=== PATIENT | male | born 2000 | race Asian ===

== ENCOUNTER 2023-12-18 02:50 | Inpatient (IN) | payer MEDICAID, OTHER ==
[~2023-12-18] VITALS: Ht 167.6 cm; Wt 61.9 kg
[2023-12-18 05:54] LABS: BASOPHILS % (AUTO) 0.6 % (0.0-2.0); EOSINOPHILS % (AUTO) 0.5 % (1.0-6.0); HEMATOCRIT 43.1 % (41-53); HEMOGLOBIN 14.8 g/dL (13.5-17.5); LYMPHOCYTES # (AUTO) 2.3 K/uL (1.0-4.8); MEAN CORPUSCULAR HEMOGLOBIN 31.5 pg (26.0-34.0); MEAN CORPUSCULAR HGB CONC 34.3 G/dL (31.0-37.0); MEAN CORPUSCULAR VOLUME 92 fL (80-100); MONOCYTES # (AUTO) 0.7 K/uL (0.1-1.0); MONOCYTES % (AUTO) 7.6 % (2.0-9.0); NEUTROPHILS # (AUTO) 6.1 K/uL (1.8-7.7); NEUTROPHILS % (AUTO) 66.3 % (40.0-70.0); PLATELET COUNT (AUTO) 332 K/uL (150-450); RED BLOOD CELL COUNT(AUTO) 4.69 MIL/uL (4.50-5.90); RED CELL DISTRIBUTION WIDTH 12.6 % (11.5-14.5); WHITE BLOOD COUNT (AUTO) 9.3 K/uL (4.5-11.0)
[2023-12-18 06:04] LABS: ANION GAP 9 mmol/L (8-16); CALCIUM, TOTAL 8.8 mg/dL (8.8-10.5); CARBON DIOXIDE 31 mmol/L (22-29); CHLORIDE 99 mmol/L (98-107); CREATININE 0.93 mg/dL (0.60-1.30); GLOMERULAR FILTR. RATE CALC > 60 mL/min (>60); GLUCOSE,RANDOM 106 mg/dL (70-110); POTASSIUM 3.4 mmol/L (3.5-5.1); SODIUM SERUM 139 mmol/L (136-145); UREA NITROGEN, BLOOD 11 mg/dL (7-18)
[2023-12-18 06:18] LABS: ALCOHOL, BLOOD (SERUM) < 3 mg/dL (0-10)
[2023-12-18] MEDS: POTASSIUM CHLORIDE 20 MEQ ER TABLET PO ONE (06:29)
[2023-12-18 11:42] LABS: ALCOHOL, URINE DRUG SCREEN NEGATIVE (NEGATIVE); AMPHET/METH SCREEN,URINE NEGATIVE (NEGATIVE); BARBITURATE SCREEN, URINE NEGATIVE (NEGATIVE); BENZODIAZEPINES SCREEN,URINE NEGATIVE (NEGATIVE); CANNABINOID SCREEN,URINE NEGATIVE (NEGATIVE); COCAINE SCREEN,URINE POSITIVE (NEGATIVE); METHADONE SCREEN, URINE NEGATIVE (NEGATIVE); OPIATE SCREEN,URINE NEGATIVE (NEGATIVE); PHENCYCLIDINE SCREEN,URINE NEGATIVE (NEGATIVE)
[2023-12-18] MEDS ORDERED: HALOPERIDOL 5 MG TABLET PO PRN (17:15)
[2023-12-18] MEDS ORDERED: LORazepam 2 MG TABLET PO PRN (17:15)
[2023-12-18 17:18] LABS: COVID AG,FIA SOURCE NASAL SWAB
[2023-12-18 17:36] VITALS: BP 125/72; PULSE 68; RESP 19; TEMP 98.5; O2SAT 99
[2023-12-18 17:40] VITALS: BP 125/75; PULSE 68; RESP 18; TEMP 98.5
[2023-12-18 17:56] LABS: SARS-COV2 (COVID) ANTIGEN,FIA Negative (Negative)
[2023-12-18] MEDS ORDERED: MAG HYDROX/ALUMINUM HYD/SIMETH ES 30 ML SUSPENSION UDCUP PO PRN (20:15)
[2023-12-18] MEDS ORDERED: DOCUSATE SODIUM 100 MG CAPSULE PO PRN (20:15)
[2023-12-18] MEDS ORDERED: LOPERAMIDE HCL 2 MG CAPSULE PO PRN (20:15)
[2023-12-18] MEDS ORDERED: ONDANSETRON HCL 4 MG TABLET PO PRN (20:15)
[2023-12-18] MEDS ORDERED: OMEPRAZOLE 20 MG CAPSULE PO PRN (20:15)
[2023-12-18] MEDS ORDERED: BENZOCAINE/MENTHOL LOZENGE PO PRN (20:15)
[2023-12-18] MEDS ORDERED: PETROLATUM,WHITE 28 GM JELLY TP PRN (20:15)
[2023-12-18] MEDS ORDERED: CloNIDine HCL 0.1 MG TABLET PO PRN (20:15)
[2023-12-18] MEDS ORDERED: ALBUTEROL SULFATE HFA 90 MCG/PUFF 8 GM INHALER IH PRN (20:15)
[2023-12-18] MEDS ORDERED: IBUPROFEN 600 MG TABLET PO PRN (20:15)
[2023-12-18] MEDS ORDERED: MAGNESIUM HYDROXIDE SUSPENSION 30 ML UDCUP PO PRN (20:15)
[2023-12-18] MEDS ORDERED: ACETAMINOPHEN 325 MG TABLET PO PRN (20:15)
[2023-12-18] MEDS ORDERED: BACITRACIN 28 GM OINTMENT TP PRN (20:15)
[2023-12-18 22:14] VITALS: BP 117/78; PULSE 89; RESP 16; TEMP 97.9; O2SAT 98
[2023-12-18] MEDS: ZOLPIDEM TARTRATE 10 MG TABLET PO PRN (22:16)
[2023-12-19 09:54] VITALS: BP 106/67; PULSE 68; RESP 18; TEMP 98.1; O2SAT 96
[2023-12-19 22:54] VITALS: BP 103/76; PULSE 65; RESP 18; TEMP 97.1; O2SAT 97
[2023-12-20 10:39] VITALS: BP 105/62; PULSE 62; RESP 18; TEMP 97.4; O2SAT 62
== END 2023-12-20 17:10 | disposition home or self-care (01) | DRG 751 ==
LOC: EMS 02:50 → 3EI 17:03
PROVIDERS: ADMIT Psychiatry & Neurology Psychiatry; ATTEND Psychiatry & Neurology Psychiatry
DX: F33.2 Major depressive disorder, recurrent severe without psychotic features (principal); R45.851 Suicidal ideations; F22 Delusional disorders; E87.6 Hypokalemia; Z20.822 Contact with and (suspected) exposure to COVID-19; F41.9 Anxiety disorder, unspecified; G47.00 Insomnia, unspecified; K59.00 Constipation, unspecified; F14.10 Cocaine abuse, uncomplicated; F10.90 Alcohol use, unspecified, uncomplicated; Z88.8 Allergy status to other drugs, medicaments and biological substances
CPT/HCPCS: 80048; 80307; 84132; 85025; 99285; G0480